=== PATIENT | male | born 1985 | race American Indian/Alaskan Native ===

== ENCOUNTER 2019-12-17 19:21 | Emergency (ER) | payer BC ==
--- NOTE | 2019-12-17 19:55 | Emergency Department Report ---
ED ENT HPI - General Chief complaint: Dental/Oral Stated complaint: TOOTH ABSCESS Time Seen by Provider: 12/17/19 19:51 Source: patient Mode of arrival: Ambulatory Limitations: No Limitations - History of Present Illness Initial comments: pt is a 34 yo male who presents to the ED with c/o left lower dental pain that began yesterday. states that he saw a dentist 8 months ago and was advised he needs 4 teeth pulled, states he did not have them pulled. states he began having swelling to the left lower jaw today. he denies any fever, no n/v/d. PMHx none. no allergies to meds. - Related Data Previous Rx's Medication Instructions Recorded Last Taken Type Ibuprofen [Motrin 600 MG tab] 600 mg PO Q8H PRN #14 tablet 12/17/19 Unknown Rx Penicillin Vk [Veetids TAB] 500 mg PO QID 7 Days #56 tablet 12/17/19 Unknown Rx Allergies Allergy/AdvReac Type Severity Reaction Status Date / Time No Known Allergies Allergy Verified 12/17/19 19:31 ED Dental HPI - General Chief complaint: Dental/Oral Stated complaint: TOOTH ABSCESS Time Seen by Provider: 12/17/19 19:51 Source: patient Mode of arrival: Ambulatory Limitations: No Limitations - Related Data Previous Rx's Medication Instructions Recorded Last Taken Type Ibuprofen [Motrin 600 MG tab] 600 mg PO Q8H PRN #14 tablet 12/17/19 Unknown Rx Penicillin Vk [Veetids TAB] 500 mg PO QID 7 Days #56 tablet 12/17/19 Unknown Rx Allergies Allergy/AdvReac Type Severity Reaction Status Date / Time No Known Allergies Allergy Verified 12/17/19 19:31 ED Review of Systems ROS: Stated complaint: TOOTH ABSCESS Other details as noted in HPI Comment: All other systems reviewed and negative ED Past Medical Hx - Medications Home Medications: Home Medications Medication Instructions Recorded Confirmed Last Taken Type Ibuprofen [Motrin 600 MG tab] 600 mg PO Q8H PRN #14 tablet 12/17/19 Unknown Rx Penicillin Vk [Veetids TAB] 500 mg PO QID 7 Days #56 tablet 12/17/19 Unknown Rx ED Physical Exam - General Limitations: No Limitations General appearance: alert, in no apparent distress - Head Head exam: Present: atraumatic, normocephalic - Eye Eye exam: Present: normal appearance - ENT ENT exam: Present: normal orophraynx, mucous membranes moist, other (pt has a few cracked teeth present, there is one present to the left lower jaw, there is edema/induration present to the left lower gum line, there is left sided jaw swelling present, uvula is midline, no uvular edema, no uvular deviation) - Respiratory Respiratory exam: Present: normal lung sounds bilaterally. Absent: respiratory distress, wheezes, rales, rhonchi, stridor, chest wall tenderness, accessory muscle use, decreased breath sounds, prolonged expiratory - Cardiovascular Cardiovascular Exam: Present: regular rate, normal rhythm, normal heart sounds. Absent: systolic murmur, diastolic murmur, rubs, gallop - Neurological Exam Neurological exam: Present: alert, oriented X3 - Psychiatric Psychiatric exam: Present: normal affect, normal mood - Skin Skin exam: Present: warm, dry ED Course Vital Signs 12/17/19 12/17/19 19:30 19:53 Temperature 99.5 F 99.5 F Pulse Rate 103 H 108 H Respiratory 18 20 Rate Blood Pressure 187/103 175/98 O2 Sat by Pulse 99 99 Oximetry ED Medical Decision Making - Medical Decision Making pt is a 34 yo male who presents to the ED with c/o left lower dental pain that began yesterday. states that he saw a dentist 8 months ago and was advised he needs 4 teeth pulled, states he did not have them pulled. states he began having swelling to the left lower jaw today. he denies any fever, no n/v/d. PMHx none. no allergies to meds. on exam: pt has a few cracked teeth present, there is one present to the left lower jaw, there is edema/induration present to the left lower gum line, there is left sided jaw swelling present, uvula is midline, no uvular edema, no uvular deviation. vitals with elevated BP which improved upon repeat, advised pt to please see a PCP, he is not having any symptoms related to his BP, he is in some discomfort from his toothache, discussed keep a blood pressure log, eat a low sodium diet, incorporate exercise, and see the PCP. examination consistent with dental abscess, tolerating secretions, no airway compromise. given prescription for penicillin vk and ibuprofen. advised to please take medication as prescribed. increase your water intake. follow up with a dentist. it is very important you follow up with a dentist for a permanent solution. please follow up with a primary care doctor regarding the elevation in your blood pressure. keep a blood pressure log, take your blood pressure three times a day. eat a low sodium diet. incorporate daily exercise. return to the emergency room for any new or worsening symptoms. Critical care attestation.: If time is entered above; I have spent that time in minutes in the direct care of this critically ill patient, excluding procedure time. ED Disposition Clinical Impression: Dental abscess, Cracked tooth, Dental caries, Elevated blood pressure reading Disposition: TO HOME OR SELFCARE Is pt being admited?: No Does the pt Need Aspirin: No Condition: Stable Instructions: Dental Abscess (ED) Additional Instructions: please take medication as prescribed. increase your water intake. follow up with a dentist. it is very important you follow up with a dentist for a permanent solution. please follow up with a primary care doctor regarding the elevation in your blood pressure. keep a blood pressure log, take your blood pressure three times a day. eat a low sodium diet. incorporate daily exercise. return to the emergency room for any new or worsening symptoms. Prescriptions: Ibuprofen [Motrin 600 MG tab] 600 mg PO Q8H PRN #14 tablet PRN Reason: Pain Penicillin Vk [Veetids TAB] 500 mg PO QID 7 Days #56 tablet Referrals: [facility] [Outside] - 3-5 Days [facility] [Outside] - 3-5 Days [facility] [Outside] - 3-5 Days SADIE CAPELLAN MD [Staff Physician] - 3-5 Days Time of Disposition: 19:56 Print Language: ETHIOPIAN
[2019-12-17 19:57] VITALS: BP 175/98
== END 2019-12-17 20:21 | disposition home or self-care (01) ==
LOC: ED 19:21
DX: K02.9 Dental caries, unspecified (principal); K04.7 Periapical abscess without sinus; K03.81 Cracked tooth; R03.0 Elevated blood-pressure reading, without diagnosis of hypertension; Z79.899 Other long term (current) drug therapy
CPT/HCPCS: 99282